=== PATIENT | female | born 1955 | race African-American/Black ===

== ENCOUNTER 2024-06-24 16:34 | Emergency (ER) | payer OTHER ==
[2024-06-24] MEDS ORDERED: ACETAMINOPHEN 500 MG TAB ONE (18:06)
[2024-06-24 18:15] LABS: SARS-CoV-2 Antigen CONTROL BLUE LINE VIS/BG OK; SARS-CoV-2 Antigen Rapid Res Negative (Negative)
--- NOTE | 2024-06-24 18:57 | EDPHYS ---
Physician Documentation [facility] Name: Mary Velez Age: 68 yrs Sex: Female : 1955 Arrival Date: 06/24/2024 Time: 16:34 Bed DX5 Private MD: ED Physician Ayan Bhatia HPI: 06/24 17:45 This 68 yrs old Black Female presents to ER via Ambulatory with complaints of Covid cp symptoms. 17:45 The patient or guardian reports flu symptoms, low-grade fever, body aches, chills, cp chest tightness. Onset: The symptoms/episode began/occurred this morning. Patient reports positive home COVID test but concerned that test was too old, requesting retesting. Historical: - Allergies: 17:06 No Known Allergies; kc6 - PMHx: 17:06 Hypertensive disorder; Hypothyroidism; Grave's Disease; Hypercholesterolemia; kc6 - PSHx: 17:06 hysterectomy; kc6 - Immunization history:: Adult Immunizations up to date. - Infectious Disease History:: Denies. - Social history:: Smoking status: Patient denies any tobacco usage or history of. ROS: 17:50 Constitutional: Positive for body aches, chills, fever, Negative for poor PO intake, cp 17:50 Eyes: Negative for injury, pain, redness, and discharge, cp 17:50 ENT: Negative for drainage from ear(s), ear pain, difficulty swallowing, difficulty handling secretions, 17:50 Cardiovascular: Negative for edema, palpitations, 17:50 Respiratory: Negative for cough, shortness of breath, wheezing, 17:50 Abdomen/GI: Negative for abdominal pain, vomiting, diarrhea, constipation, 17:50 Neuro: Negative for altered mental status, dizziness, headache, weakness, 17:50 All other systems are negative, Exam: 18:00 Constitutional: The patient appears in no acute distress, alert, awake, cp non-diaphoretic, non-toxic, well developed, well nourished, 18:00 Head/Face: Normocephalic, atraumatic. cp 18:00 Eyes: Periorbital structures: appear normal, Conjunctiva: normal, no exudate, no injection, Sclera: no appreciated abnormality, Lids and lashes: appear normal, bilaterally, 18:00 ENT: External ear(s): are unremarkable, Nose: is normal, Mouth: Lips: moist, Oral mucosa: pink and intact, moist, Posterior pharynx: is normal, airway is patent, no erythema, no exudate, 18:00 Neck: ROM/movement: is normal, is supple, without pain, no range of motions limitations, 18:00 Chest/axilla: Inspection: normal, 18:00 Cardiovascular: Rate: normal, Rhythm: regular, 18:00 Respiratory: the patient does not display signs of respiratory distress, Respirations: normal, no use of accessory muscles, no retractions, labored breathing, is not present, Breath sounds: are clear throughout, no decreased breath sounds, no stridor, no wheezing, 18:00 Abdomen/GI: Exam negative for discomfort, distension, guarding, Inspection: abdomen appears normal, 18:00 Back: pain, is absent, ROM is normal, 18:00 Neuro: Orientation: to person, place \T\ time. Mentation: is normal, Vital Signs: 17:02 BP 157 / 96; Pulse 72; Resp 19 S; Temp 99.2(O); Pulse Ox 100% on R/A; Weight 77.11 kg kc6 (R); Height 5 ft. 4 in. (R); Pain 0/10; 19:22 BP 149 / 91; Pulse 70; Resp 18 S; Pulse Ox 99% on R/A; ha1 17:02 Body Mass Index 29.18 (77.11 kg, 162.56 cm) kc6 17:02 Pain Scale: Adult kc6 MDM: 17:09 Medical Screening Exam initiated robyn 18:55 Data reviewed: vital signs, nurses notes, lab test result(s), and as a result, I will cp discharge patient. 18:55 Differential diagnosis: bronchitis, flu, COVID. I considered the following discharge cp prescriptions or medication management in the emergency department Medications were administered in the Emergency Department. See MAR. Care significantly affected by the following chronic conditions: Hypertension. Counseling: I had a detailed discussion with the patient and/or guardian regarding the historical points, exam findings, and any diagnostic results supporting the discharge/admit diagnosis, lab results, to return to the emergency department if symptoms worsen or persist or if there are any questions or concerns that arise at home. 06/24 17:34 Order name: SARS RAPID; Complete Time: 18:54 cp 10/25 18:54 Interpretation: Reviewed. cp 06/24 17:34 Order name: Influenza Screen (a \T\ B); Complete Time: 18:54 cp 06/24 18:55 Interpretation: Reviewed. cp 06/24 17:34 Order name: Strep cp 06/24 18:54 Interpretation: Reviewed. cp 06/24 18:18 Order name: Throat Culture EDMS Administered Medications: 18:12 Drug: Acetaminophen PO 1000 mg PO once Route: PO; kc6 19:22 Follow up: Response: No adverse reaction; Marked relief of symptoms ha1 Disposition Summary: 06/24/24 18:56 Discharge Ordered Notes: Location: Home cp Problem: new cp Symptoms: have improved cp Condition: Stable cp Diagnosis - SARS-associated coronavirus as the cause of diseases classified elsewhere cp Followup: cp - With: Private Physician - When: 2 - 3 days - Reason: Worsening of condition Discharge Instructions: - Discharge Summary Sheet cp - Aspirin and Your Heart cp - COVID-19 cp - How to Protect Yourself and Others - [facility] (10/25/2021) cp - 10 Things You Can Do to Manage Your COVID-19 Symptoms at Home - [facility] (03/15/2021) cp - COVID-19: Quarantine and Isolation - [facility] (11/27/2021) cp - COVID-19: What to Do If You Are Sick - [facility] (11/19/2021) cp Forms: - Medication Reconciliation Form cp - Antibiotic Education cp - Prescription Opioid Use cp - Patient Portal Instructions cp - Leadership Thank You Letter cp Prescriptions: - Paxlovid 300 mg (150 mg x 2)-100 mg Oral Tablet, Dose Pack - take 1 dose pack ORAL route per package directions for 5 days; 30 tablet; cp Refills: 0, Product Selection Permitted Signatures: Dispatcher [employer] EDMS Ayan Bhatia MD MD cha Page, Corey, PA PA cp Campbell, Kaitlyn RN RN kc6 Cristiana Duncan RN ha1
--- NOTE | 2024-06-24 18:57 | ER ---
Nurse's Notes [facility] Name: Mary Velez Age: 68 yrs Sex: Female : 1955 Arrival Date: 06/24/2024 Time: 16:34 Bed DX5 Private MD: Diagnosis: SARS-associated coronavirus as the cause of diseases classified elsewhere Presentation: 06/24 17:02 Chief complaint: Patient states: she started feeling "funny" this AM with chest kc6 tightness, achiness, clammy, and shaking. pt states her home covid test was (+). Coronavirus screen: At this time, the client does not indicate any symptoms associated with coronavirus-19. Ebola Screen: No symptoms or risks identified at this time. Initial Sepsis Screen: Does the patient meet any 2 criteria? No. Patient's initial sepsis screen is negative. Does the patient have a suspected source of infection? No. Patient's initial sepsis screen is negative. Risk Assessment: Do you want to hurt yourself or someone else? Patient reports no desire to harm self or others. Onset of symptoms was June 24, 2024. 17:02 Method Of Arrival: Ambulatory kc6 17:02 Acuity: QUINTEN 4 kc6 Historical: - Allergies: 17:06 No Known Allergies; kc6 - PMHx: 17:06 Hypertensive disorder; Hypothyroidism; Grave's Disease; Hypercholesterolemia; kc6 - PSHx: 17:06 hysterectomy; kc6 - Immunization history:: Adult Immunizations up to date. - Infectious Disease History:: Denies. - Social history:: Smoking status: Patient denies any tobacco usage or history of. Screenin:12 [facility] ED Fall Risk Assessment (Adult) History of falling in the last 3 months, kc6 including since admission No falls in past 3 months (0 pts) Confusion or Disorientation No (0 pts) Intoxicated or Sedated No (0 pts) Impaired Gait No (0 pts) Mobility Assist Device Used No (0 pt) Altered Elimination No (0 pt) Score/Fall Risk Level 0 - 2 = Low Risk Oriented to surroundings. Abuse screen: Denies threats or abuse. Denies injuries from another. Nutritional screening: No deficits noted. Tuberculosis screening: No symptoms or risk factors identified. Assessment: 18:12 General: Appears in no apparent distress. comfortable, well groomed, well developed, kc6 Behavior is calm, cooperative, appropriate for age. Pain: Complains of pain in mid-sternal area. Neuro: Level of Consciousness is awake, alert, obeys commands, Oriented to person, place, time, situation, Appropriate for age. Cardiovascular: Capillary refill < 3 seconds. Respiratory: Airway is patent Trachea midline Respiratory effort is even, unlabored, Respiratory pattern is regular, symmetrical, Denies cough, shortness of breath. GI: No signs and/or symptoms were reported involving the gastrointestinal system. : No signs and/or symptoms were reported regarding the genitourinary system. EENT: Denies nasal congestion. Derm: No signs and/or symptoms reported regarding the dermatologic system. Skin is intact, is healthy with good turgor, Skin is pink, warm \\T\\ dry. Musculoskeletal: No signs and/or symptoms reported regarding the musculoskeletal system. Circulation, motion, and sensation intact. Capillary refill < 3 seconds, Range of motion: intact in all extremities. 19:21 Reassessment: Patient and/or family updated on plan of care and expected duration. Pain ha1 level reassessed. Patient is alert, oriented x 3, equal unlabored respirations, skin warm/dry/pink. Patient states feeling better. Patient states symptoms have improved. Vital Signs: 17:02 BP 157 / 96; Pulse 72; Resp 19 S; Temp 99.2(O); Pulse Ox 100% on R/A; Weight 77.11 kg kc6 (R); Height 5 ft. 4 in. (R); Pain 0/10; 19:22 BP 149 / 91; Pulse 70; Resp 18 S; Pulse Ox 99% on R/A; ha1 17:02 Body Mass Index 29.18 (77.11 kg, 162.56 cm) kc6 17:02 Pain Scale: Adult kc ED Course: 16:38 Patient arrived in ED. mr 16:44 Ayan Hedrick PA is PHCP. cp 16:44 Ayan Bhatia MD is Attending Physician. cp 17:06 Triage completed. kc6 17:06 Arm band placed on. kc6 17:47 Strep Sent. nh2 17:47 Influenza Screen (a \\T\\ B) Sent. nh2 17:47 SARS RAPID Sent. nh2 17:48 COVID swab sent to lab. Flu and/or RSV swab sent to lab. Strep swab sent to lab. nh2 18:12 Patient has correct armband on for positive identification. Warm blanket given. kc6 19:21 No provider procedures requiring assistance completed. Patient did not have IV access ha1 during this emergency room visit. 19:22 Provided Education on: medication administration . ha1 Administered Medications: 18:12 Drug: Acetaminophen PO 1000 mg PO once Route: PO; kc6 19:22 Follow up: Response: No adverse reaction; Marked relief of symptoms ha1 Medication: 19:22 VIS not applicable for this client. ha1 Outcome: 18:56 Discharge ordered by . ba 19:21 Discharged to home ambulatory, ha1 19:21 Condition: stable 19:21 Discharge instructions given to patient, Instructed on discharge instructions, follow up and referral plans. medication usage, Demonstrated understanding of instructions, follow-up care, medications, Prescriptions given X 2, 19:23 Patient left the ED. ha1 Signatures: Ina Gill, Reg Reg mr Ayan Hedrick PA PA cp Ayala, Heidy, RN RN ha1 Cynthia Millan RN RN kc6 Yuval Holliday, Dario nh2
[2024-06-25 08:19] VITALS: TEMP 99.2
[2024-06-25 08:20] VITALS: BP 149/91; O2SAT 99
== END 2024-06-24 19:23 | disposition home or self-care (01) ==
LOC: ER 16:34
DX: U07.1 COVID-19 (principal)
CPT/HCPCS: 36415; 87070; 87081; 87804; 87811; 99283